=== PATIENT | female | born 1980 | race African-American/Black ===

== ENCOUNTER → 2022-09-16 | Day surgery (SDC) | payer BC ==
[2022-09-15 12:41] VITALS: BMI 29.2
[2022-09-16 09:14] VITALS: TEMP 97.5
[2022-09-16 09:18] VITALS: RESP 18
[2022-09-16 09:47] VITALS: BP 112/80; PULSE 65
== END | disposition home or self-care (01) ==
LOC: JASU-ENDO 04:46
PROVIDERS: ATTEND Internal Medicine Gastroenterology
PROC: 0DBK8ZX Excision of Ascending Colon, Via Natural or Artificial Opening Endoscopic, Diagnostic (ICD-10-PCS; principal; 2022-09-16 10:45)
DX: D12.2 Benign neoplasm of ascending colon (principal); D50.9 Iron deficiency anemia, unspecified
CPT/HCPCS: 81025; 88305-TC